=== PATIENT | male | born 1980 | race Caucasian/White ===

== ENCOUNTER 2019-08-02 16:04 | Emergency (ER) | payer SELFPAY ==
[~2019-08-02] VITALS: Ht 170.2 cm; Wt 65.8 kg
[2019-08-02 16:21] VITALS: BP 129/75
--- NOTE | 2019-08-02 16:41 | NUR ---
PT BIB SELF TO THE ED WITH THE CHIEF C/O DOG BITE ON LEFT LOWER LEG TODAY. REDNESS AND SCRATCHES NOTED ON LEFT LOWER LEG. STOPPED BLEEDING. PAIN /. AMBULATORY. DENIES FEVER OR ANY OTHER PROBLEM AT THIS TIME. PER PT, WAS BITE IN [place] OF HIS HOME. PT STATES THAT THERE WERE THREE DOGS , NOT SURE OF THE BREED AT THIS TIME. NOT SURE WHICH DOG BITE HIM. CONTACT OF RECEIVER SETTER [phone]. APPEARED AGRESSIVE. PT WAS BITE ON LFT LOWER LEG. PMH: NONE RX: NONE ALLERGIC TO JEANINE
[2019-08-02] MEDS: BACITRACIN OINT 500 UNITS/GM PKT TP ONE (17:01)
--- NOTE | 2019-08-02 17:01 | NUR ---
APPLIED BACITRACIN TO LEFT CALF AND BANDAID WITHOUT ANY ISSUES
--- NOTE | 2019-08-02 17:06 | NUR ---
Patient discharged with v/s stable. Written and verbal after care instructions given and explained. Patient alert, oriented and verbalized understanding of instructions. Ambulatory with steady gait. All questions addressed prior to discharge. ID band removed. Patient advised to follow up with PMD. Rx of IBUPROFEN, AUGMENTIN, BACITRACIN given. Patient educated on indication of medication including possible reaction and side effects. Opportunity to ask questions provided and answered.
--- NOTE | 2019-08-02 17:24 | NUR ---
[facility]X SENT TO [facility]. RECIVED CONFIRMATION.
== END 2019-08-02 17:06 | disposition home or self-care (01) ==
LOC: MED 16:04
DX: S81.852A Open bite, left lower leg, initial encounter (principal); Z91.018 Allergy to other foods; W54.0XXA Bitten by dog, initial encounter; Y93.89 Activity, other specified; Y92.89 Other specified places as the place of occurrence of the external cause; Y99.8 Other external cause status
CPT/HCPCS: 90471; 90715; 99283